=== PATIENT | male | born 1955 | race Caucasian/White ===

== ENCOUNTER 2022-11-30 20:02 | Emergency (ER) | payer MEDICARE ==
[~2022-11-30] VITALS: Ht 157.5 cm; Wt 56.7 kg
[2022-11-30 20:05] VITALS: BP_SYST 144
--- NOTE | 2022-11-30 20:37 | NUR ---
BROUGHT BACK TO BED #8 AND DR BAR AT BEDSIDE FOR EVALUATION
[2022-11-30] MEDS ORDERED: KETOROLAC TROMETHAMINE 30 MG VIAL IVP ONE (20:45)
[2022-11-30] MEDS ORDERED: DOXYCYCLINE HYCLATE 100 MG in D5W 100 ML IV ONE (20:45)
[2022-11-30] MEDS ORDERED: cefTRIAXone 1 GM in D5W 50 ML IV ONE (20:45)
[2022-11-30 21:07] LABS: BASOPHILS # (AUTO) 0.1 K/uL (0.0-0.2); BASOPHILS % (AUTO) 0.8 % (0.0-2.0); EOSINOPHILS # (AUTO) 0.3 K/uL (0.0-0.4); HEMATOCRIT 44.6 % (36-54); LYMPHOCYTES # (AUTO) 1.8 K/uL (1.0-5.5); LYMPHOCYTES % (AUTO) 30.2 % (20.5-51.5); MEAN CORPUSCULAR HEMOGLOBIN 32 pg (27-31); MEAN CORPUSCULAR HGB CONC 34 % (32-36); MEAN CORPUSCULAR VOLUME 95 fL (79.0-98.0); MONOCYTES # (AUTO) 0.8 K/uL (0.0-1.0); MONOCYTES % (AUTO) 12.6 % (1.7-9.3); NEUTROPHILS # (AUTO) 3.1 K/uL (1.8-7.7); NEUTROPHILS % (AUTO) 51.4 % (40.0-70.0); PLATELET COUNT (AUTO) 233 K/uL (130-430); RED BLOOD CELL COUNT(AUTO) 4.67 MIL/uL (4.2-6.2); RED CELL DISTRIBUTION WIDTH 14.2 % (9.0-15.0)
--- NOTE | 2022-11-30 21:10 | NUR ---
Received report from ELVIN Burgess; assuming patient care at this time.
[2022-11-30] MEDS ORDERED: DOXYCYCLINE HYCLATE 100 MG VIAL IV ONE (21:11)
[2022-11-30] MEDS ORDERED: cefTRIAXone 1 GM VIAL ONE (21:11)
--- NOTE | 2022-11-30 21:15 | NUR ---
Patient presents to ED from home with c/o possible cellulitis of right hand. Patient reports pain 9/10 at this time. Patient A/Ox4, VSS, ambulatory, resp even and unlabored. Skin warm and dry; patient has redness and slight swelling noted to the right hand. Patient's at bedside. Nad noted at this time.
[2022-11-30 21:18] LABS: CALCIUM 8.5 mg/dL (8.4-11.0); CREATININE 0.88 mg/dL (0.55-1.30)
[2022-11-30 21:23] LABS: ALBUMIN 3.9 g/dL (3.4-4.8); TOTAL BILIRUBIN 0.3 mg/dL (0.0-1.0)
[2022-11-30] MEDS ORDERED: DOXY100C5 PO (21:56)
[2022-11-30] MEDS ORDERED: DICL20GE TP (21:56)
[2022-11-30] MEDS ORDERED: AUG875 PO (21:56)
[2022-11-30 22:15] VITALS: BP_SYST 132
--- NOTE | 2022-11-30 22:15 | NUR ---
Patient given written and verbal discharge instructions and verbalizes understanding. ER MD discussed with patient the results and treatment provided. Patient in stable condition. ID arm band removed. IV catheter removed intact and dressing applied, no active bleeding. Rx of AUGMENTIN, VOLATAREN, DOXYCYCLINE given. Patient educated on pain management and to follow up with PMD. Pain Scale 0/10 Opportunity for questions provided and answered. Medication side effect fact sheet provided.
== END 2022-11-30 22:15 | disposition home or self-care (01) ==
LOC: SED 20:02
DX: L03.113 Cellulitis of right upper limb (principal); M79.641 Pain in right hand; Z79.899 Other long term (current) drug therapy
CPT/HCPCS: 99284; 96365; 96375; 80053; 85025; 87040; 36415; 96368; 83605; J0696; J3490; J1885

== ENCOUNTER 2023-05-14 13:30 | Emergency (ER) | payer MEDICARE ==
[~2023-05-14] VITALS: Ht 162.6 cm; Wt 68.0 kg
[~2023-05-14 13:30] MED LIST: AUG875 PO; DICL20GE TP; DOXY100C5 PO
[2023-05-14 14:19] VITALS: RESP 20; TEMP 97.9; O2SAT 99
== END 2023-05-14 15:15 | disposition home or self-care (01) ==
LOC: SED 13:30
DX: S60.454A Superficial foreign body of right ring finger, initial encounter (principal); Z79.899 Other long term (current) drug therapy; W45.8XXA Other foreign body or object entering through skin, initial encounter; Y93.89 Activity, other specified; Y92.89 Other specified places as the place of occurrence of the external cause; Y99.8 Other external cause status
CPT/HCPCS: 99281